=== PATIENT | female | born 1995 | race Caucasian/White ===

== ENCOUNTER → 2019-03-16 | Outpatient (CLI) | payer OTHER ==
--- NOTE | 2019-03-16 12:20 | RADIOLOGY REPORT (SQ) ---
EXAM DESCRIPTION: NM HIDA SCAN WITH CCK COMPLETED DATE/TIME: 03/16/2019 10:21 am REASON FOR STUDY: RUQ PAIN (R10.11) R10.11 RIGHT UPPER QUADRANT PAIN COMPARISON: None. RADIONUCLIDE AND DOSE: DOSAGE RADIONUCLIDE: 5.0 millicuries Tc99m Mebrofenin. DOSAGE CCK: 1.6 micrograms. DOSAGE MORPHINE: Not required. The route of agent administration: Intravenous TECHNIQUE: Serial imaging right upper quadrant up to 60 minutes following injection of radionuclide. CCK injected after gallbladder visualized. LIMITATIONS: None. FINDINGS: LIVER: Normal visualization without areas of photopenia. INTRAHEPATIC BILE DUCTS: Normal size and no delay in visualization. COMMON BILE DUCT: Normal without dilatation. GALLBLADDER: Normal visualization. Calculated ejection fraction of 18%%. Normal range is greater t dent 35%. PHYSICAL RESPONSE: Patients presenting complaint were reproduced. OTHER: No other significant finding. IMPRESSION: 1. ABNORMAL STUDY. GALLBLADDER EJECTION FRACTION IS 18%(normal range is greater than 35% ). EVIDENCE FOR BILIARY DYSKINESIS. 2. The patient's symptoms were reproduced following CCK administration. TECHNICAL DOCUMENTATION: JOB ID: [id number]- All Rights Reserved Reading location - IP/workstation name: [email or web address]
== END ==
LOC: RAD 07:38
PROVIDERS: ATTEND Nurse Practitioner Family
DX: R10.11 Right upper quadrant pain (principal)
CPT/HCPCS: 78227; J2805; A9537; Q9969

== ENCOUNTER 2019-04-03 10:53 | Day surgery (SDC) | payer OTHER ==
[2019-03-28 10:25] LABS: ALBUMIN 4.6 g/dL (3.5-5.0); ALKALINE PHOSPHATASE 86 U/L (38-126); ANION GAP 16 (5-19); ASPARTATE AMINO TRANSFERASE 20 U/L (14-36); BILIRUBIN,DIRECT 0.1 mg/dL (0.0-0.4); BILIRUBIN,TOTAL 0.6 mg/dL (0.2-1.3); BLOOD UREA NITROGEN 12 mg/dL (7-20); CALCIUM 9.5 mg/dL (8.4-10.2); CARBON DIOXIDE 22 mmol/L (22-30); CHLORIDE 102 mmol/L (98-107); GLUCOSE 115 mg/dL (75-110); POTASSIUM 3.8 mmol/L (3.6-5.0); TOTAL PROTEIN 7.7 g/dL (6.3-8.2)
[~2019-04-03 10:53] MED LIST: ACETAMINOPHEN 325 MG TABLET PO PRN; CEFAZOLIN SODIUM 2 GM in DEXTROSE 5%-WATER 100 ML IV PRN; DEXAMETHASONE SOD PHOSPHATE INJ 4 MG/1 ML VIAL ONE; FENTANYL CITRATE INJ/PF 100 MCG/2 ML AMPUL ONE; IBUPROFEN 800 MG in NORMAL SALINE 250 ML IV PRN; LACTATED RINGERS 1000 ML IV PRN; LIDOCAINE 0.5% INJ-PF (5 MG/ML) 50 ML SDV SUBCUT PRN; MIDAZOLAM 2 MG/2 ML INJ ONE; ONDANSETRON HCL INJ/PF 4 MG/2 ML SDV ONE; PROPOFOL INJ 200 MG/20 ML VIAL IV ONE; ROCURONIUM BROMIDE INJ 50 MG/5 ML VIAL IV ONE; SUGAMMADEX SODIUM 200 MG/2 ML SDV IV ONE
[2019-04-03] MEDS ORDERED: MIDAZOLAM 2 MG/2 ML INJ ONE (11:09)
[2019-04-03] MEDS ORDERED: SCOPOLAMINE HYDROBROMIDE 1.5 MG PATCH.TD72 ONE (11:09)
[2019-04-03] MEDS ORDERED: ACETAMINOPHEN 325 MG TABLET ONE (11:12)
[2019-04-03] MEDS ORDERED: RINGERS SOLUTION,LACTATED 1,000 ML IV PRN (11:15)
[2019-04-03 12:07] LABS: HEMATOCRIT 39.4 % (36.0-47.0); HEMOGLOBIN 13.4 g/dL (12.0-15.5); MEAN CORPUSCULAR VOLUME 85 fl (80-97); PLATELET COUNT 263 10^3/uL (150-450); RED BLOOD COUNT 4.63 10^6/uL (3.72-5.28); RED CELL DISTRIBUTION WIDTH 13.2 % (11.5-14.0); WHITE BLOOD COUNT 6.5 10^3/uL (4.0-10.5)
[2019-04-03] MEDS ORDERED: BUPIVACAINE HCL 0.25 % INJ/PF (2.5 MG/1 ML) 30 ML VIAL ONE (13:37)
[2019-04-03] MEDS ORDERED: ONDANSETRON HCL INJ/PF 4 MG/2 ML SDV IV PRN (14:15)
[2019-04-03] MEDS ORDERED: OXYCODONE-ACETAMINOPHEN 5-325 MG TABLET PO PRN ×2 (14:15)
[2019-04-03] MEDS ORDERED: DIPHENHYDRAMINE HCL 50 MG/ML VIAL IV PRN (14:15)
[2019-04-03] MEDS ORDERED: MEPERIDINE HCL/PF INJ 25 MG/1 ML DISP.SYRIN IV PRN (14:15)
[2019-04-03] MEDS ORDERED: FENTANYL CITRATE INJ/PF 100 MCG/2 ML AMPUL IV PRN ×3 (14:15)
[2019-04-03] MEDS ORDERED: MORPHINE SULFATE 10 MG/ML INJ IV PRN (14:15)
[2019-04-03] MEDS ORDERED: BUPIVACAINE HCL 0.25 % INJ/PF (2.5 MG/1 ML) 30 ML VIAL INJ ONE (14:20)
[2019-04-03] MEDS ORDERED: DIPHENHYDRAMINE HCL 50 MG/ML VIAL ONE (15:12)
[2019-04-03] MEDS ORDERED: FAMOTIDINE INJ/PF 20 MG/2 ML SDV IV ONE (15:16)
[2019-04-03] MEDS ORDERED: SIMETHICONE 80 MG TAB.CHEW ONE (15:18)
[2019-04-03] MEDS ORDERED: HYDROCODONE/ACETAMINOPHEN 10-325 MG TABLET PO PRN (15:20)
[2019-04-03 17:05] VITALS: BP 117/70
[2019-04-03] MEDS ORDERED: IBUPROFEN 800 MG TABLET PO SCH (18:00)
--- NOTE | 2019-04-08 11:28 | Discharge Summary ---
Discharge Summary (SDC) - Discharge Final Diagnosis: Biliary dyskinesia Date of Surgery: 04/03/19 Discharge Date: 04/03/19 Condition: Good Forms: ASU Anesthesia D/C Instruction, Discharge POC-Surgical Service Treatment or Instructions: DIET TOLERATED. NO LIFTING OVER 10 LBS IN [address] FOR 2 DAYS. MAY SHOWER IN 2 DAYS. Referrals: AYESHA MORENO MD [Primary Care Provider] - GINGER COURTNEY MD [ACTIVE STAFF] - 04/17/19 1:15 pm Discharge Diet: As Tolerated Respiratory Treatments at Home: Deep Breathing/Coughing, Incentive Spirometer Discharge Activity: Balance Activity w/Rest, No Lifting Over 10 Pounds, No Lifting/Push/Pulling Home Care Assistance: None Needed Report the Following to Your Physician Immediately: Shortness of Breath, Nausea, Vomiting, Increase in Pain, Yellow Skin, Fever over 101 Degrees, Unusual Bleeding, Redness, Swelling, Warmth
--- NOTE | 2019-04-08 11:32 | Operative Report ---
Nonrecallable Operative Report DATE OF SURGERY: 04/03/19 PREOPERATIVE DIAGNOSIS: Biliary dyskinesia POSTOPERATIVE DIAGNOSIS: Same as above OPERATION: Laparoscopic cholecystectomy SURGEON: GINGER COURTNEY ANESTHESIA: GA TISSUE REMOVED OR ALTERED: Gallbladder COMPLICATIONS: None apparent ESTIMATED BLOOD LOSS: Minimal PROCEDURE: Procedure in detail: After informed consent was obtained, the patient was brought to the operating room and laid in the supine position. The area of the abdomen was prepped and draped in a normal sterile fashion. An umbilical incision was created with a 15 blade scalpel. Dissection was carried through the subcutaneous tissue using sharp and blunt dissection. The linea alba fascia was incised sharply, the abdomen was entered sharply. The balloon trocar was inserted, and pneumoperitoneum was achieved. A subxiphoid 5 mm port was then placed under direct laparoscopic visualization. 2 more 5 mm ports were placed in the right upper quadrant in similar fashion. Atraumatic graspers were placed through the 5 mm ports. The gallbladder was retracted cephalad and laterally. Dissection was begun in the triangle of Calot. The cystic duct and cystic artery were fully visualized and skeletonized, seeing the liver through the triangle. After the critical view of safety was obtained, the cystic duct and cystic artery were clipped and cut with laparoscopic instruments. The gallbladder was then removed from the liver using Bovie electrocautery. The gallbladder was placed into an Endo Catch bag and pulled out the umbilicus. The camera was reinserted. The abdomen was irrigated and suctioned until the effluent was clear. The hilum was then inspected. It was found to be free of any leakage of blood or bile. Next, the 5 mm trochars were removed under direct laparoscopic visualization. The umbilical trocar was removed, and pneumoperitoneum was relieved. The umbilical fascia was closed using 0 Vicryl suture in [id number] fashion. The overlying skin was closed using 4-0 Vicryl Rapide suture in subcuticular fashion. All sponge, instrument, and needle counts were correct x2. Condition: Stable.
== END 2019-04-03 17:10 | disposition home or self-care (01) ==
LOC: OROUT 10:53
PROVIDERS: ATTEND Surgery
DX: K81.1 Chronic cholecystitis (principal); Z79.899 Other long term (current) drug therapy
CPT/HCPCS: 86900; 86901; 36415 ×2; 86850; 85027; 81025; 80053; 88304 ×2; 00790; 47562; J2250; J0690; J3490 ×2; J1100; J1200; J3010; J2405; J7060; J7050; J2704; S0028; J1741; 790

== ENCOUNTER 2019-04-03 19:40 | Emergency (ER) | payer OTHER ==
[2019-04-03 19:52] VITALS: BP 116/77
--- NOTE | 2019-04-03 20:42 | ER Document Report ---
ED Medical Screen (RME) - General Chief Complaint: Post Surgical Pain Stated Complaint: POST SURGICAL PAIN Time Seen by Provider: 04/03/19 20:37 Primary Care Provider: AYESHA MORENO MD [Primary Care Provider] - Follow up as needed Notes: Healthy 23-year-old female POD# 0 status post cholecystectomy presents to the emergency department for right upper quadrant pain. Patient states she got home around 5 PM today from her surgery performed by Dr. Ordaz, ate a couple of bites of rice, had some right upper quadrant pain consistent with previous gallbladder attack, called the number on her discharge paperwork and was recommended by the nurse water maintenance supervisor to return to the emergency department for reevaluation. Patient denies any nausea or vomiting, denies fevers, denies any other symptoms other than right upper quadrant pain. Exam: Abdominal exam limited in triage but does have some right upper quadrant tenderness to light palpation I have greeted and performed a rapid initial assessment of this patient. A comprehensive ED assessment and evaluation of the patient, analysis of test results and completion of medical decision making process will be conducted by an additional ED providers. TRAVEL OUTSIDE OF THE [place] IN LAST 30 DAYS: No - Related Data Allergies/Adverse Reactions: shellfish/iodine Allergy (Severe, Uncoded 03/27/19 17:04) Shortness of Breath Past Medical History - Past Medical History Cardiac Medical History: Denies: Hx Coronary Artery Disease, Hx Heart Attack, Hx Hypertension Pulmonary Medical History: Denies: Hx Asthma, Hx Bronchitis, Hx COPD, Hx Pneumonia Neurological Medical History: Denies: Hx Cerebrovascular Accident, Hx Seizures Musculoskeltal Medical History: Denies Hx Arthritis Past Surgical History: Reports: Hx Oral Surgery - Immunizations Immunizations up to date: Yes Hx Diphtheria, Pertussis, Tetanus Vaccination: Yes Physical Exam - Vital signs Vitals: Temp Pulse Resp BP Pulse Ox 97.4 F 88 20 116/77 97 04/03/19 19:51 04/03/19 19:51 04/03/19 19:51 04/03/19 19:51 04/03/19 19:51 Course - Vital Signs Vital signs: Temp Pulse Resp BP Pulse Ox 97.4 F 88 20 116/77 97 04/03/19 20:35 04/03/19 19:51 04/03/19 20:35 04/03/19 19:51 04/03/19 20:35 Doctor's Discharge - Discharge Referrals: AYESHA MORENO MD [Primary Care Provider] - Follow up as needed
[2019-04-03 21:55] LABS: ALBUMIN 4.7 g/dL (3.5-5.0); ALKALINE PHOSPHATASE 86 U/L (38-126); ANION GAP 16 (5-19); ASPARTATE AMINO TRANSFERASE 66 U/L (14-36); BILIRUBIN,DIRECT 0.1 mg/dL (0.0-0.4); BILIRUBIN,TOTAL 0.4 mg/dL (0.2-1.3); BLOOD UREA NITROGEN 9 mg/dL (7-20); CALCIUM 9.9 mg/dL (8.4-10.2); CARBON DIOXIDE 21 mmol/L (22-30); CHLORIDE 102 mmol/L (98-107); GLUCOSE 224 mg/dL (75-110); POTASSIUM 4.2 mmol/L (3.6-5.0)
[2019-04-03 22:23] LABS: ABSOLUTE LYMPHOCYTES (AUTO) 0.8 10^3/uL (0.5-4.7); ABSOLUTE MONOCYTES (AUTO) 0.1 10^3/uL (0.1-1.4); ABSOLUTE NEUT (AUTO) 9.5 10^3/uL (1.7-8.2); BASOPHILS % (AUTO) 0.1 % (0-2); HEMATOCRIT 40.7 % (36.0-47.0); HEMOGLOBIN 13.6 g/dL (12.0-15.5); LYMPHOCYTES % (AUTO) 7.7 % (13-45); MEAN CORPUSCULAR HEMOGLOBIN 28.9 pg (27.0-33.4); MEAN CORPUSCULAR HGB CONC 33.5 g/dL (32.0-36.0); MEAN CORPUSCULAR VOLUME 86 fl (80-97); MONOCYTES % (AUTO) 0.9 % (3-13); PLATELET COUNT 310 10^3/uL (150-450); RED BLOOD COUNT 4.73 10^6/uL (3.72-5.28); RED CELL DISTRIBUTION WIDTH 13.6 % (11.5-14.0); SEGMENTED NEUTROPHILS % (AUTO) 91.3 % (42-78); TOTAL CELLS COUNTED % (AUTO) 100 %; WHITE BLOOD COUNT 10.4 10^3/uL (4.0-10.5)
[2019-04-03] MEDS ORDERED: MORPHINE SULFATE 10 MG/ML INJ IV ONE (22:25)
[2019-04-03] MEDS ORDERED: NORMAL SALINE 1000 ML 1,000 ML IV ONE (22:25)
[2019-04-03] MEDS ORDERED: ONDANSETRON HCL INJ/PF 4 MG/2 ML SDV IV ONE (22:25)
--- NOTE | 2019-04-03 22:27 | ER Document Report ---
ED GI/ - General Chief Complaint: Post Surgical Pain Stated Complaint: POST SURGICAL PAIN Time Seen by Provider: 04/03/19 20:37 Notes: Patient is a 23-year-old female that comes emergency department for chief complaint of upper abdominal pain. Patient is status post cholecystectomy at about 1 PM earlier today, was discharged home, states that she got home at around 5 PM, she ate some rice and started having cramping sharp pain in her upper abdomen "like I used to have with my gallbladder". She denies vomiting, flank pain, fever/chills. She states she took her prescribed Percocet and ibuprofen and the pain has reduced. She states she called the number on her discharge paperwork and she was recommended by the nursing line supervisor should return to the emergency department for evaluation. Patient denies any other medications, denies any medical history otherwise except and orthopedic surgeries. Patient reports her surgeon was Dr. Ordaz. TRAVEL OUTSIDE OF THE [place] IN LAST 30 DAYS: No - Related Data Allergies/Adverse Reactions: shellfish/iodine Allergy (Severe, Uncoded 03/27/19 17:04) Shortness of Breath Past Medical History - General Information source: Patient - Social History Smoking Status: Never Smoker Frequency of alcohol use: None Drug Abuse: None Lives with: Family Family History: CAD, DM, Hyperlipidemia, Hypertension, Thyroid Disfunction Patient has suicidal ideation: No Patient has homicidal ideation: No - Past Medical History Cardiac Medical History: Denies: Hx Coronary Artery Disease, Hx Heart Attack, Hx Hypertension Pulmonary Medical History: Denies: Hx Asthma, Hx Bronchitis, Hx COPD, Hx Pneumonia Neurological Medical History: Denies: Hx Cerebrovascular Accident, Hx Seizures Musculoskeletal Medical History: Denies Hx Arthritis Past Surgical History: Reports: Hx Oral Surgery - Immunizations Immunizations up to date: Yes Hx Diphtheria, Pertussis, Tetanus Vaccination: Yes Review of Systems - Review of Systems Constitutional: No symptoms reported EENT: No symptoms reported Cardiovascular: No symptoms reported Respiratory: No symptoms reported Gastrointestinal: See HPI Genitourinary: No symptoms reported Female Genitourinary: No symptoms reported Musculoskeletal: No symptoms reported Skin: No symptoms reported Hematologic/Lymphatic: No symptoms reported Neurological/Psychological: No symptoms reported Physical Exam - Vital signs Vitals: Temp Pulse Resp BP Pulse Ox 97.4 F 88 20 116/77 97 04/03/19 19:51 04/03/19 19:51 04/03/19 19:51 04/03/19 19:51 04/03/19 19:51 - Notes Notes: GENERAL: Alert, interacts well. No acute distress. HEAD: Normocephalic, atraumatic. EYES: Pupils equal, round, and reactive to light. Extraocular movements intact. ENT: Oral mucosa moist, tongue midline. Oropharynx unremarkable. Airway patent. NECK: Full range of motion. Supple. Trachea midline. LUNGS: Clear to auscultation bilaterally, no wheezes, rales, or rhonchi. No respiratory distress. HEART: Regular rate and rhythm. No murmur ABDOMEN: Postoperative wounds without dehiscence, no surrounding erythema, no significant tenderness, induration, fluctuance. Mild generalized tenderness of the abdomen without guarding or rigidity. GENITOURINARY: Deferred EXTREMITIES: Moves all 4 extremities spontaneously. No edema, normal radial and dorsalis pedis pulses bilaterally. No cyanosis. BACK: no cervical, thoracic, lumbar midline tenderness. No saddle anesthesia, normal distal neurovascular exam. Moves all extremities in full range of motion. NEUROLOGICAL: Alert and oriented x3. Normal speech. Cranial nerves II through XII grossly intact. PSYCH: Normal affect, normal mood. SKIN: Warm, dry, normal turgor. No rashes or lesions noted. Course - Re-evaluation Re-evalutation: Patient is smiling and well-appearing. Postoperative wounds look as expected without dehiscence, there is only mild generalized tenderness of the abdomen without guarding. No vomiting or fever. Unremarkable vital signs. CBC unremarkable without concerning hemoglobin or leukocytosis, chemistry shows some hyperglycemia after surgery but bicarbonate is only 21. Normal gap. Patient was given IV fluids, pain medication. On reevaluation she is asymptomatic. Acute abdominal series without free air or concerning findings, shows some constipation patient was given and tolerated p.o. without any difficulty. I called and spoke with Dr. Ordaz since this is his patient and he takes call for his patients. I discussed her symptoms, evaluation, work-up. I will place patient on stool softener, she will continue her medications. He does not have any additional recommendations at this time other than close follow-up and return precautions which I discussed in detail. Patient states appreciation and agreement. Stable at time of discharge. - Vital Signs Vital signs: Temp Pulse Resp BP Pulse Ox 97.4 F 88 20 116/77 97 12/23/19 20:35 04/03/19 19:51 04/03/19 20:35 04/03/19 19:51 04/03/19 20:35 - Laboratory Result Diagrams: 04/03/19 21:05 04/03/19 21:05 Laboratory results interpreted by me: 04/03/19 04/03/19 21:05 21:05 Lymph % (Auto) 7.7 L Eaton % (Auto) 0.9 L Absolute Neuts (auto) 9.5 H Seg Neutrophils % 91.3 H Carbon Dioxide 21 L Glucose 224 H AST 66 H Discharge - Discharge Clinical Impression: Post-op pain Condition: Stable Disposition: HOME, SELF-CARE Additional Instructions: Your laboratory work-up and imaging are reassuring. No concerning findings are noted at this time. I recommend the stool softener in addition to current medications, plenty fluids, bland diet, and close follow-up in the surgical office. I did speak with Dr. Ordaz in regards to your evaluation and work-up tonight. Return if you worsen including vomiting, fever, severe worsening abdominal pain or swelling, developing or spreading redness over the abdomen, or any other concerning symptoms. Prescriptions: Docusate Sodium [Colace 100 mg Capsule] 100 mg PO ASDIR PRN #30 capsule PRN Reason:
--- NOTE | 2019-04-03 23:11 | RADIOLOGY REPORT (SQ) ---
EXAM DESCRIPTION: XR ABDOMEN SUPINE AND ERECT WITH CHEST (ABD ACUTE SERIES) COMPLETED DATE/TME: 04/03/2019 22:25 CLINICAL HISTORY: 23 years, Female, post op abd pain COMPARISON: None. NUMBER OF VIEWS: 3 TECHNIQUE: Upright chest with supine and erect views of the abdomen LIMITATIONS: None. FINDINGS: Heart size normal. Lungs are clear. No pneumothorax. No free air under the hemidiaphragms. Bowel gas pattern is nonspecific. Moderate gas and stool in the colon. Status post cholecystectomy IMPRESSION: Negative chest. Moderate gas and stool in the colon copyright 2010 [employer]- All Rights Reserved
== END 2019-04-04 00:25 | disposition home or self-care (01) ==
LOC: ER 19:40
DX: G89.18 Other acute postprocedural pain (principal); R10.10 Upper abdominal pain, unspecified; Z79.899 Other long term (current) drug therapy
CPT/HCPCS: 99283; 96361; 96374; 96375; 36415; 80053; 74022; J2270; J2405; J7030

== ENCOUNTER 2020-01-06 20:35 | Emergency (ER) | payer OTHER ==
[2020-01-06 20:44] VITALS: BP 120/64
--- NOTE | 2020-01-06 21:29 | ER Document Report ---
ED Medical Screen (RME) - General Chief Complaint: Flank Pain Stated Complaint: FLANK PAIN Time Seen by Provider: 01/06/20 21:19 Primary Care Provider: AYESHA MORENO MD [Primary Care Provider] - Follow up as needed Notes: HPI: 24-year-old female who is a G2, at approximately 11 weeks gestation by ultrasound presenting for evaluation of right flank pain. Patient states she had some discomfort in both kidneys several days ago called her PLUMBER APPRENTICE who told her to drink more fluids. Patient states she was doing well for several days and then again the pain began tonight more prominent on the right kidney area with a little bit of radiation around into the flank region. No kidney stone history. No abdominal pain. Has had nausea no vomiting no fever no dysuria no hematuria. Denies vaginal bleeding or discharge PHYSICAL EXAMINATION: Very mild right CVA tenderness. No tenderness specifically in the right upper quadrant on palpation of the abdomen limited by triage positioning I have greeted and performed a rapid initial assessment of this patient. A comprehensive ED assessment and evaluation of the patient, analysis of test results and completion of medical decision making process will be conducted by an additional ED providers. TRAVEL OUTSIDE OF THE [place] IN LAST 30 DAYS: No - Related Data Allergies/Adverse Reactions: shellfish/iodine Allergy (Severe, Uncoded 03/27/19 17:04) Shortness of Breath Past Medical History - Past Medical History Cardiac Medical History: Denies: Hx Coronary Artery Disease, Hx Heart Attack, Hx Hypertension Pulmonary Medical History: Denies: Hx Asthma, Hx Bronchitis, Hx COPD, Hx Pneumonia Neurological Medical History: Denies: Hx Cerebrovascular Accident, Hx Seizures Musculoskeltal Medical History: Denies Hx Arthritis Past Surgical History: Reports: Hx Oral Surgery - Immunizations Immunizations up to date: Yes Hx Diphtheria, Pertussis, Tetanus Vaccination: Yes Physical Exam - Vital signs Vitals: Temp Pulse Resp BP Pulse Ox 98.3 F 80 20 120/64 98 01/06/20 20:43 01/06/20 20:43 01/06/20 20:43 01/06/20 20:43 01/06/20 20:43 Course - Vital Signs Vital signs: Temp Pulse Resp BP Pulse Ox 98.3 F 80 20 120/64 98 01/06/20 20:43 01/06/20 20:43 01/06/20 20:43 01/06/20 20:43 01/06/20 20:43 Doctor's Discharge - Discharge Referrals: AYESHA MORENO MD [Primary Care Provider] - Follow up as needed
[2020-01-06 22:00] LABS: APPEARANCE,URINE CLEAR; BILIRUBIN,URINE NEGATIVE (NEGATIVE); COLOR,URINE STRAW; GLUCOSE, URINE NEGATIVE (NEGATIVE); KETONES,URINE NEGATIVE (NEGATIVE); LEUKOCYTE ESTERASE,URINE NEGATIVE (NEGATIVE); NITRITE,URINE NEGATIVE (NEGATIVE); PROTEIN,URINE NEGATIVE (NEGATIVE); URINE SPECIFIC GRAVITY 1.006; UROBILINOGEN,URINE NEGATIVE mg/dL (<2.0)
--- NOTE | 2020-01-06 22:24 | RADIOLOGY REPORT (SQ) ---
EXAM DESCRIPTION: US RETROPERITONEUM COMPLETED DATE/TME: 01/06/2020 21:24 CLINICAL HISTORY: 24 years, Female, right flank pain eval for hydronephrosis COMPARISON: None. TECHNIQUE: Axial 2-D grayscale images of the kidneys were acquired. Doppler was utilized. LIMITATIONS: None. FINDINGS: Right kidney measures 10.7 x 5.9 x 4.9 cm in size. Left kidney measures 10.7 x 6.7 x 7.2 cm in size. No hydronephrosis. Limited assessment of the urinary bladder reveals bilateral ureteral jets. In addition, a gravid uterus is noted with crown-rump length measuring 5.3 cm (estimated gestational age of 12 weeks and 0 days) and heart rate of 168 bpm. IMPRESSION: No evidence of hydronephrosis. Single live intrauterine , as above. copyright 2010 [employer]- All Rights Reserved
--- NOTE | 2020-01-06 23:39 | ER Document Report ---
ED GI/ - General Chief Complaint: Flank Pain Stated Complaint: FLANK PAIN Time Seen by Provider: 01/06/20 21:19 Primary Care Provider: AYESHA MORENO MD [Primary Care Provider] - Follow up as needed Mode of Arrival: Ambulatory Information source: Patient Notes: 01/06/20 21:21 - ED Nursing Note by KEZIANÉSTOR Num: [id number] : 1995 Patient Age: 24 Pt presents to ED with pain in her bilateral flanks. Pain is worse on the right. Pain started today. The pt had similar pain 2 weeks ago. No difficulty urinating. Pt is 11 weeks . No vaginal bleeding or discharge. No cramping. No other symptoms. The pt is aox4. Resps e/u. ED Medical Screen ([facility] Notes) - General Chief Complaint: Flank Pain Stated Complaint: FLANK PAIN Time Seen by Provider: 01/06/20 21:19 Primary Care Provider: AYESHA MORENO MD [Primary Care Provider] - Follow up as needed Notes: HPI: 24-year-old female who is a G2, at approximately 11 weeks gestation by ultrasound presenting for evaluation of right flank pain. Patient states she had some discomfort in both kidneys several days ago called her LEAF SORTER who told her to drink more fluids. Patient states she was doing well for several days and then again the pain began tonight more prominent on the right kidney area with a little bit of radiation around into the flank region. No kidney stone history. No abdominal pain. Has had nausea no vomiting no fever no dysuria no hematuria. Denies vaginal bleeding or discharge PHYSICAL EXAMINATION: Very mild right CVA tenderness. No tenderness spec ifically in the right upper quadrant on palpation of the abdomen limited by triage positioning MY NOTES 24-year-old female arrives with her who is a marine. Patient reports she has a [id number] girl at home who is doing well and watched by family. Patient reports she has right greater than left CVA pain but ultrasound reveals no hydronephrosis no kidney stones and urine reveals no RBCs or WBCs. Patient does have mild proptosis of her eyes and patient reports her mother gr andmother several aunts and other female members of the family have thyroid problems. Patient reports she is been more tired than usual. She had no complications with this baby until this pain that began 2 weeks ago. She had complications with the first child with gestational diabetes. She denies any fever chills cough cold coronavirus overuse or picking up anything heavy injuring her mid back. TRAVEL OUTSIDE OF THE [place] IN LAST 30 DAYS: No - Related Data Allergies/Adverse Reactions: shellfish/iodine Allergy (Severe, Uncoded 03/27/19 17:04) Shortness of Breath Past Medical History - Social History Smoking Status: Never Smoker Family History: CAD, DM, Hyperlipidemia, Hypertension, Thyroid Disfunction - Past Medical History Cardiac Medical History: Denies: Hx Coronary Artery Disease, Hx Heart Attack, Hx Hypertension Pulmonary Medical History: Denies: Hx Asthma, Hx Bronchitis, Hx COPD, Hx Pneumonia Neurological Medical History: Denies: Hx Cerebrovascular Accident, Hx Seizures Musculoskeletal Medical History: Denies Hx Arthritis Past Surgical History: Reports: Hx Oral Surgery - Immunizations Immunizations up to date: Yes Hx Diphtheria, Pertussis, Tetanus Vaccination: Yes Physical Exam - Vital signs Vitals: Temp Pulse Resp BP Pulse Ox 98.3 F 80 20 120/64 98 01/06/20 20:43 01/06/20 20:43 01/06/20 20:43 01/06/20 20:43 01/06/20 20:43 Interpretation: Normal - General General appearance: Alert - HEENT Head: Normocephalic, Atraumatic Eyes: Other - Mild proptosis bilaterally Extraocular movements intact: Yes Pupils: PERRL Sinus: Normal Nasal: Normal Mouth/Lips: Normal Mucous membranes: Normal Pharynx: Normal Neck: Thyromegally - Respiratory Respiratory status: No respiratory distress Chest status: Nontender Breath sounds: Normal Chest palpation: Normal - Cardiovascular Rhythm: Regular Heart sounds: Normal auscultation Murmur: No - Abdominal Inspection: Gravid female - Rectal Hemorrhoids: Other - deferred - Genitourinary Bimanuel exam: Other - deferred - Back Back: Tender, CVA tenderness - R>L on p/p - Extremities General upper extremity: Normal inspection, Nontender, Normal color, Normal ROM, Normal temperature General lower extremity: Normal inspection, Nontender, Normal color, Normal ROM, Normal temperature, Normal weight bearing. No: Chao's sign - Neurological Neuro grossly intact: Yes Cognition: Normal Orientation: AAOx4 Yvonne Coma Scale Eye Opening: Spontaneous [place] Coma Scale Verbal: Oriented [place] Coma Scale Motor: Obeys Commands [place] Coma Scale Total: 15 Speech: Normal Motor strength normal: LUE, RUE, LLE, RLE Sensory: Normal - Psychological Associated symptoms: Normal affect, Normal mood - Skin Skin Temperature: Warm Skin Moisture: Dry Skin Color: Normal Course - Vital Signs Vital signs: Temp Pulse Resp BP Pulse Ox 98.3 F 80 20 120/64 98 01/06/20 20:43 01/06/20 20:43 01/06/20 20:43 01/06/20 20:43 01/06/20 20:43 - Laboratory Result Diagrams: 01/06/20 23:59 01/06/20 23:59 Laboratory results interpreted by me: 01/06/20 23:59 Sodium 136.8 L ALT 52 H Beta HCG, Quant 80949.00 H T$ TSH pending - Diagnostic Test Radiology reviewed: Reports reviewed - 12-week gravid with heart rate WNL Discharge - Discharge Clinical Impression: Flank pain in patient Qualifiers: Weeks of gestation: 12 weeks Qualified Code(s): Z3A.12 - 12 weeks gestation of Condition: Good Disposition: HOME, SELF-CARE Additional Instructions: Follow-up with LEAF SORTER this week return to ER as needed take medicines as directed encourage fluids Referrals: AYESHA MORENO MD [Primary Care Provider] - Follow up as needed
[2020-01-07 00:25] LABS: ABSOLUTE EOSINOPHILS # (AUTO) 0.1 10^3/uL (0.0-0.6); ABSOLUTE LYMPHOCYTES (AUTO) 2.4 10^3/uL (0.5-4.7); ABSOLUTE MONOCYTES (AUTO) 0.8 10^3/uL (0.1-1.4); ABSOLUTE NEUT (AUTO) 5.6 10^3/uL (1.7-8.2); BASOPHILS % (AUTO) 0.3 % (0-2); EOSINOPHILS % (AUTO) 1.2 % (0-6); HEMATOCRIT 36.5 % (36.0-47.0); HEMOGLOBIN 13.1 g/dL (12.0-15.5); LYMPHOCYTES % (AUTO) 26.9 % (13-45); MEAN CORPUSCULAR VOLUME 86 fl (80-97); MONOCYTES % (AUTO) 8.8 % (3-13); PLATELET COUNT 221 10^3/uL (150-450); RED BLOOD COUNT 4.24 10^6/uL (3.72-5.28); RED CELL DISTRIBUTION WIDTH 13.7 % (11.5-14.0); SEGMENTED NEUTROPHILS % (AUTO) 62.8 % (42-78); TOTAL CELLS COUNTED % (AUTO) 100 %; WHITE BLOOD COUNT 8.9 10^3/uL (4.0-10.5)
[2020-01-07 00:47] LABS: ALBUMIN 4.3 g/dL (3.5-5.0); ALKALINE PHOSPHATASE 83 U/L (38-126); ANION GAP 9 (5-19); ASPARTATE AMINO TRANSFERASE 29 U/L (14-36); BILIRUBIN,DIRECT 0.3 mg/dL (0.0-0.4); BILIRUBIN,TOTAL 0.3 mg/dL (0.2-1.3); BLOOD UREA NITROGEN 11 mg/dL (7-20); CALCIUM 9.6 mg/dL (8.4-10.2); CARBON DIOXIDE 25 mmol/L (22-30); CHLORIDE 103 mmol/L (98-107); GLUCOSE 87 mg/dL (75-110); POTASSIUM 3.9 mmol/L (3.6-5.0); TOTAL PROTEIN 7.2 g/dL (6.3-8.2)
[2020-01-07 01:49] LABS: FREE T4 (FREE THYROXINE) 0.8 ng/dL (0.78-2.19)
[2020-01-07 02:03] LABS: THYROID STIMULATING HORMONE 1.75 uIU/mL (0.47-4.68)
[2020-01-07] MEDS ORDERED: HYDROCODONE/ACETAMINOPHEN 5-325 MG TABLET PO ONE (02:04)
== END 2020-01-07 02:20 | disposition home or self-care (01) ==
LOC: ER 20:35
DX: O26.891 Other specified pregnancy related conditions, first trimester (principal); N23 Unspecified renal colic; H05.20 Unspecified exophthalmos; O99.281 Endocrine, nutritional and metabolic diseases complicating pregnancy, first trimester; E01.0 Iodine-deficiency related diffuse (endemic) goiter; Z3A.12 12 weeks gestation of pregnancy; Z86.32 Personal history of gestational diabetes; Z91.013 Allergy to seafood; Z83.49 Family history of other endocrine, nutritional and metabolic diseases
CPT/HCPCS: 36415; 76770; 80053; 81001; 82550; 83690; 84439; 84443; 84702; 85025; 99284